=== PATIENT | female | born 1955 | race Caucasian/White ===

== ENCOUNTER → 2019-03-14 | Outpatient (CLI) | payer OTHER ==
--- NOTE | 2019-03-15 08:07 | RAD ---
CERVICAL SPINE 2-3V History: Neck pain. Technique: 2 views cervical spine. Comparison: None. Findings: Minimal grade 1 anterolisthesis C3 on C4 and C4 on C5. Multilevel degenerative disc changes with mild disc space narrowing most prominent C5-C6 and C6-C7. Multilevel mild to moderate facet arthropathy. Normal vertebral body height. No fracture. Prevertebral soft tissues unremarkable. Postoperative changes anterior neck soft tissues. Impression: 1. Multilevel cervical spondylosis. 2. Grade 1 anterolisthesis C3 on C4 and C4 on C5. Electronically signed by: Adalberto Hernandez DO (03/15/2019 8:04 AM) [facility]
--- NOTE | 2019-03-15 08:08 | RAD ---
HIP RIGHT 2 VIEW History: Right hip and upper back pain. Technique: 2 views right hip. Comparison: None. Findings: Normal alignment. No fracture. Soft tissues unremarkable. Impression: 1. No acute osseous abnormality. Electronically signed by: Adalberto Hernandez DO (03/15/2019 8:05 AM) [facility]
== END | disposition home or self-care (01) ==
LOC: RAD 09:21
PROVIDERS: ATTEND Surgery
DX: M43.12 Spondylolisthesis, cervical region (principal); M16.11 Unilateral primary osteoarthritis, right hip; M47.812 Spondylosis without myelopathy or radiculopathy, cervical region; M54.6 Pain in thoracic spine
CPT/HCPCS: 72040; 73502